=== PATIENT | female | born 1965 | race Caucasian/White ===

== ENCOUNTER → 2020-08-10 16:48 | Outpatient (CLI) | payer BC, SELFPAY ==
--- NOTE | ~2020-08-10 | MM_ITS ---
EXAMINATION: MM screening wilbert BI w bruce HISTORY: Screening mammogram TECHNIQUE: Craniocaudal and mediolateral oblique 3-D tomosynthesis images were obtained and synthetic 2-D images were generated. CAD analysis was submitted and interpreted. COMPARISON: 03/12/2019 diagnostic left digital mammogram and complete left breast ultrasound 02/19/2019, 01/08/2018, 10/15/1999 1150 bilateral digital screening mammogram examinations BREAST PARENCHYMAL COMPOSITION: The breasts are heterogeneously dense, which may obscure small masses . FINDINGS: Right chemotherapy port superimposing the right axilla. There is focal asymmetric density and calcifications in the deep lateral left breast; diagnostic left mammogram and left breast ultrasound examination are recommended. There are asymmetries in the left breast of rotated lateral craniocaudal view. Diagnostic right mammogram is recommended, with ultrasou nd if required.. IMPRESSION: 1. Bilateral asymmetries and focal left microcalcifications 2. Bilateral diagnostic mammography and breast ultrasound examination are recommended. BI-RADS Category 0: Incomplete: Needs additional imaging evaluation. Reviewed, dictated and finalized at location A. 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 Bilateral asymmetries and focal left microcalcifications 2. Bilateral diagnostic mammography and breast ultrasound examination are recom mended. BI-RADS Category 0: Incomplete: Needs additional imaging evaluation.
== END ==
DX: Z12.31 Encounter for screening mammogram for malignant neoplasm of breast (principal); R92.8 Other abnormal and inconclusive findings on diagnostic imaging of breast
CPT/HCPCS: 77063; 77067

== ENCOUNTER → 2020-09-15 08:20 | Outpatient (CLI) | payer BC, SELFPAY ==
--- NOTE | ~2020-09-15 | MMUS_ITS ---
EXAMINATION: MM diagnostic wilbert BI w bruce, US breast BI complete HISTORY: Follow-up breast asymmetries and focal calcifications of the left breast. TECHNIQUE: Additional 3-D tomosynthesis images of the breasts were performed and synthetic 2-D images were generated. CAD analysis was submitted and interpreted. High resolution bilateral complete breas t ultrasound was performed. COMPARISON: Comparison to multiple prior studies sequentially, with oldest reviewed study dated Rigoberto rison to multiple prior studies sequentially, with oldest reviewed study dated 11/27/2013. . BREAST PARENCHYMAL COMPOSITION: The breasts are heterogenously dense, which may obscure small masses. FINDINGS: MAMMOGRAPHIC FINDINGS: There is a cluster of indeterminate calcifications in the lower outer quadrant of the left breast pos teriorly. There are no suspicious masses or architectural distortion identified in the either breast. ULTRASOUND: Right breast ultrasound: At 7:00, 7 cm from the nipple, there is a 3 mm cyst. At 8:00, 5 cm from the nipple, there is an oval circumscribed hypoechoic mass measuring up to 4 mm with low-level internal e choes, most likely complicated cysts. At 11:00, 4 cm from the nipple, there is an oval hypoechoic mas s measuring 6 mm without posterior features or internal vascularity. Left breast ultrasound: At 12:00, 2 cm from the nipple, there is a 5 mm cyst. At 3:00, 4 cm from the nipple, there is an oval hypoechoic mass measuring 3 mm, likely a complicated cyst. At 10:00, 5 cm fr om the nipple, there is a oval hypoechoic mass measuring 4 mm, likely benign. IMPRESSION: 1. Clustered left breast calcifications lower outer quadrant. Stereotactic left breast biopsy recomme nded. 2. Probable benign bilateral sonographic masses. Six-month follow-up bilateral breast ultrasound akira mmended. BI-RADS category 4, suspicious findings. Reviewed, dictated and finalized at location A. IMPRESSION: 1. Clustered left breast calcifications lower outer quadrant. Stereotactic left breast biopsy recommended. 2. Probable benign bilateral sonographic masses. Six-month follow-up bilateral breast ultrasound recommended. BI-RADS category 4, suspicious findings.
== END ==
DX: N63.20 Unspecified lump in the left breast, unspecified quadrant (principal); R92.8 Other abnormal and inconclusive findings on diagnostic imaging of breast
CPT/HCPCS: 76641; 77062; 77066; G0279

== ENCOUNTER 2022-03-11 08:02 | Outpatient (CLI) | payer BC, SELFPAY ==
--- NOTE | ~2022-03-11 | MR_ITS ---
EXAMINATION: MR brain/brain stem wo con DATE: 03/11/2022 08:38 INDICATION: Headache. TECHNIQUE: Magnetic resonance imaging (MRI) of the brain and brainstem was performed without intraven ous contrast. COMPARISON: None. FINDINGS: There is a focus of increased T2-weighted signal intensity in the left frontal lobe deep wh ite matter, which is normal as an estimate of finding. There is no intracranial hemorrhage, acute inf arction, or abnormal intracranial mass lesion. The ventricles are normal in size. The orbits are norm al. The mastoid air cells are normal. The paranasal sinuses are clear. IMPRESSION: 1. Normal brain. Reviewed, dictated and finalized at location A. IMPRESSION: 1. Normal brain.
== END 2022-03-11 08:03 | disposition home or self-care (01) ==
LOC: ANHIMG 08:04
PROVIDERS: PCP Family Medicine Adolescent Medicine; Visit Provider Physician Assistant
DX: G44.52 New daily persistent headache (NDPH) (principal)
CPT/HCPCS: 70551